=== PATIENT | male | born 1960 | race Caucasian/White ===

== ENCOUNTER 2016-06-13 12:03 | Day surgery (SDC) | payer MEDICARE ==
[2016-06-08 16:02] LABS: HEMATOCRIT 35.5 % (40.0-51.0); HEMOGLOBIN 12.3 g/dL (13.6-17.8)
[2016-06-08 16:17] LABS: BUN (BLOOD UREA NITROGEN) 11 MG/DL (6-23); CALCIUM, SERUM 7.7 MG/DL (8.5-10.4); CHLORIDE, SERUM 106 MMOL/L (96-112); CO2 (CARBON DIOXIDE) 29 MMOL/L (24-34); CREATININE 0.61 MG/DL (0.70-1.30); GFR AFRICAN AMERICAN 128 ML/MIN (>=60); GFR NON AFRICAN AMERICAN 111 ML/MIN (>=60); GLUCOSE, SERUM 93 MG/DL (60-99); POTASSIUM, SERUM 3.5 MMOL/L (3.5-5.3); SODIUM, SERUM 141 MMOL/L (135-148)
--- NOTE | ~2016-06-13 | OP ---
Record Of Operation [facility] [address] [place]. [address] NAME: SERJIO CARVALHO IV : 58 STATUS : [facility]#: [id number] AGE: 56 ADM/REG DATE : 06/13/16 MR#: [id number] REPORT SERV DATE: 06/16/16 DICTATED BY: ABDON TIERNEY DATE: 06/16/16 REPORT STATUS : Draft TRANSCRIBED BY: MODL DATE: 06/16/16 DATE OF PROCEDURE: 06/13/2016 PREOPERATIVE DIAGNOSIS: Nonhealing ulcer, right medial calf. POSTOPERATIVE DIAGNOSIS: Nonhealing ulcer, right medial calf. PROCEDURE: Split-thickness skin graft, right medial calf with donor site, right anterior thigh. SURGEON: Abdon Tierney M.D. DESCRIPTION OF OPERATIVE PROCEDURE: The patient was brought to the operating suite, placed in supine position, underwent general endotracheal anesthesia without incident. The skin of the ulceration of the right medial calf over the gastrocnemius muscle was scrubbed, prepped, and draped in usual sterile fashion and had any slough or other fibrinous exudate on the surface was cleaned off with debridement. Then, three separate split-thickness skin graft was taken from the right anterior thigh. Mineral was placed on the donor site. The setting on the dermatome was used to take the grafts, which were then run through the mesher and placed over the recipient site at the site of the ulceration. There were held in position with multiple stainless steel manuel. The recipient site was dressed with a Vaseline gauze, followed by Telfa, sponges, and Kerlix wrap, with Coban. The donor site received the Xeroform gauze and Op-Site. The patient tolerated the procedure well and he was returned to PACU in stable condition. At the termination of the procedure, sponge, needle, lap, and instrument counts were correct x3. ESTIMATED BLOOD LOSS: Less than 10 mL. KAREL/AIMEE Abdon Tierney M.D. / [id number] CC: Abdon Tierney M.D.
[~2016-06-13 12:03] MED LIST: MOBIC15 MG PO; OPANA10 MG PO
== END 2016-06-13 19:49 | disposition home or self-care (01) ==
LOC: SDC 12:03
PROVIDERS: Specialist
PROC: 0HRHX74 Replacement of Right Upper Leg Skin with Autologous Tissue Substitute, Partial Thickness, External Approach (ICD-10-PCS; principal; 2016-06-13 12:00)
DX: L97.211 Non-pressure chronic ulcer of right calf limited to breakdown of skin (principal); Z98.890 Other specified postprocedural states; Z90.89 Acquired absence of other organs; F17.290 Nicotine dependence, other tobacco product, uncomplicated; M25.561 Pain in right knee
CPT/HCPCS: 80048; 85014; 85018; 93005; J0690; J2250; J2405; J2710; J3010